=== PATIENT | male | born 1985 | race African-American/Black ===

== ENCOUNTER 2017-10-29 19:40 | Emergency (ER) | payer MEDICAID ==
[~2017-10-29] VITALS: Ht 190.5 cm; Wt 79.0 kg
[2017-10-30] MEDS ORDERED: LIDOCAINE HCL/EPINEPHRINE 1%-EPI 1:100,000 20 ML VIAL INFIL ONE (01:30)
[2017-10-30] MEDS ORDERED: TETANUS, DIPHTHERIA, PERTUSSIS VAC/PF 0.5ML (>7YR OLD) IM ONE (01:30)
[2017-10-30] MEDS ORDERED: LIDOCAINE HCL 1%/EPI 1:200,000 30 ML VIAL IJ SCH (01:30)
[2017-10-30] MEDS ORDERED: HYDROCODONE/ACETAMINOPHEN 5/325MG TABLET PO ONE (01:30)
[2017-10-30] MEDS ORDERED: BACITRACIN ZINC OINT UDPKT TOP ONE (04:10)
[2017-10-30 04:47] VITALS: BP 129/76
== END 2017-10-30 04:49 | disposition home or self-care (01) ==
LOC: ER 19:40
DX: S61.451A Open bite of right hand, initial encounter (principal); W54.0XXA Bitten by dog, initial encounter; Y93.89 Activity, other specified; Y92.89 Other specified places as the place of occurrence of the external cause; Y99.8 Other external cause status
CPT/HCPCS: 73130; 90471; 90715; 99284; J3490; X7700; Z7610